=== PATIENT | male | born 1960 | race Caucasian/White ===

== ENCOUNTER 2020-05-14 20:08 | Emergency (ER) | payer BC, SELFPAY ==
[2020-05-14 20:09] VITALS: BP 164/111; PULSE 70; RESP 16; TEMP 36.1; O2SAT 95
[2020-05-14 20:51] VITALS: BP 135/89; PULSE 52; RESP 18
--- NOTE | 2020-05-14 20:52 | ED.GENADULT ---
HPI - General Adult General Chief complaint: Extremity Injury, Upper Stated complaint: Fall, Arm Lac Time Seen by Provider: 05/14/20 20:11 Source: patient and family Mode of arrival: ambulatory Limitations: no limitations History of Present Illness HPI narrative: Patient is a 59-year-old male who presents with right elbow injury patient notes that he slipped on his wet deck landing on his right elbow sustaining laceration of the proximal right forearm patient notes his tetanus to be up-to-date patient presents to emergency department noting minimal pain patient denies any decreased range of motion or strength or other issues Related Data Home Medications Medication Instructions Recorded Confirmed sildenafil 100 mg tablet 100 mg PO DAILY PRN 02/23/19 02/28/20 omeprazole 40 mg-sodium 1 cap PO DAILY 03/09/19 02/28/20 bicarbonate 1.1 gram capsule Allergies Allergy/AdvReac Type Severity Reaction Status Date / Time No Known Allergies Allergy Verified 05/14/20 20:52 Review of Systems Review of Systems: All systems reviewed & are unremarkable except as noted in HPI and below PMFSH Past Medical History Medical History Alcohol use disorder Anxiety Atrial fibrillation Closed left ankle fracture COVID-19 virus infection Failed hardware Left ankle hardware removed GERD without esophagitis Gout Hyperlipidemia Hypertension Uncontrolled Obstructive sleep apnea Intolerant of CPAP Surgical History Surgical History History of appendectomy Family History Family History Mother Diabetes mellitus Family history of diabetes mellitus in first degree relative Hypertension Cerebrovascular accident Sibling Diabetes mellitus Social History Social History Social History: 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 he is a full code Smoking packs per day: 1 Smoking cigarettes per day: 20.0 Smoking status: Never smoker Tobacco type: cigarettes Second hand tobacco smoke exposure: No Alcohol intake: current Drinks per week: 8 Substance use: current Substance use type: does not use Other substance usage details: DENIES. POSITIVE FOR MARIJUANA IN DRUG SCREEN. Additional living arrangements comments: Ara. Additional occupation/education comments: We can Gender identity (if verbalized by the patient): Male Spiritual care concerns: No Agree to blood products: Yes Exam Narrative: Exam Narrative: GENERAL: Well-appearing, well-nourished, and in no acute distress. HEAD: Normocephalic, atraumatic. EYES: PERRLA and EOMI. ENT: Nares clear, no rhinorrhea or epistaxis. Mucous membranes moist. EXTREMITIES: Normal range of motion. No edema. SKIN: Warm, dry, no rash. 3 cm irregular laceration extending to the subcutaneous tissues of the proximal right forearm NEURO: No focal deficits. Alert and oriented x3. Neurovascularly intact. Capillary refill less than 2-second PSYCH: Normal mood and affect. Course Course Emergency Course: Patient in the room aware of case findings treatment plan diagnosis had repair of his wound will be discharged home for further evaluation by primary care given reasons to return and felt appropriate for outpatient reevaluation Vital Signs Vital signs: Vital Signs Temperature 97 F L 05/14/20 20:09 Pulse Rate 70 05/14/20 20:09 Respiratory Rate 16 05/14/20 20:09 Blood Pressure 164/111 H 05/14/20 20:09 Pulse Oximetry 95 05/14/20 20:09 Temperature 97 F L 05/14/20 20:09 Pulse Rate 70 05/14/20 20:09 Respiratory Rate 16 05/14/20 20:09 Blood Pressure 164/111 H 05/14/20 20:09 Pulse Oximetry 95 05/14/20 20:09 Procedures Laceration Laceration 1: Date: 05/14/20 Time: 20:55
[2020-05-14 20:55] VITALS: BP 135/89; PULSE 52; RESP 18; O2SAT 95
== END 2020-05-14 20:55 | disposition home or self-care (01) ==
PROVIDERS: Emergency Provider Emergency Medicine; PCP Physician Assistant Medical
DX: S51.811A Laceration without foreign body of right forearm, initial encounter (principal); W01.0XXA Fall on same level from slipping, tripping and stumbling without subsequent striking against object, initial encounter; F41.9 Anxiety disorder, unspecified; I48.91 Unspecified atrial fibrillation; Z86.16 Personal history of COVID-19; K21.9 Gastro-esophageal reflux disease without esophagitis; M10.9 Gout, unspecified; E78.5 Hyperlipidemia, unspecified; I10 Essential (primary) hypertension; G47.33 Obstructive sleep apnea (adult) (pediatric)
CPT/HCPCS: 12002; 99282

== ENCOUNTER 2020-05-24 19:45 | Emergency (ER) | payer BC, SELFPAY ==
[2020-05-24 19:51] VITALS: BP 159/90; PULSE 78; RESP 18; TEMP 35.8; O2SAT 93
--- NOTE | 2020-05-24 20:05 | PC.NURSE ---
patient brought back to ED room 21 for wound check. patient had odell placed at this ED approximately 10 days ago. was instructed to remove at 7-10 days. patient removed 2 odell today and states that area began to bleed. see initial notes. alert. oriented. denies needs. waiting for provider to see patient.
--- NOTE | 2020-05-24 20:50 | ED.SKABFB ---
HPI - Skin/Abscess/Foreign Bdy General Chief complaint: Skin/Abscess/Foreign Body Stated complaint: closed wound opened Time Seen by Provider: 05/24/20 19:58 Source: patient Mode of arrival: ambulatory Limitations: intoxication History of Present Illness HPI narrative: This is a 59-year-old male that presents the emergency department for concern about his laceration. Reports he had brianne and sutures placed about 10 days ago. He started to take the brianne out today and there was a little bit of bleeding which concerned him. Denies fever, abnormal drainage, or redness. Related Data Allergies Allergy/AdvReac Type Severity Reaction Status Date / Time No Known Allergies Allergy Verified 05/14/20 20:52 Review of Systems Review of Systems: Narrative: CONSTITUTIONAL: Denies fever SKIN: Reports laceration All systems reviewed & are unremarkable except as noted in HPI and below PMFSH Past Medical History Medical History Alcohol use disorder Anxiety Atrial fibrillation Closed left ankle fracture COVID-19 virus infection Failed hardware Left ankle hardware removed GERD without esophagitis Gout Hyperlipidemia Hypertension Uncontrolled Obstructive sleep apnea Intolerant of CPAP Surgical History Surgical History History of appendectomy Family History Family History Mother Diabetes mellitus Family history of diabetes mellitus in first degree relative Hypertension Cerebrovascular accident Sibling Diabetes mellitus Social History Social History Social History: 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 he is a full code Smoking packs per day: 1 Smoking cigarettes per day: 20.0 Smoking status: Never smoker Tobacco type: cigarettes Second hand tobacco smoke exposure: No Alcohol intake: current Drinks per week: 8 Substance use: current Substance use type: does not use Other substance usage details: DENIES. POSITIVE FOR MARIJUANA IN DRUG SCREEN. Additional living arrangements comments: [facility]. Additional occupation/education comments: We can Gender identity (if verbalized by the patient): Male Spiritual care concerns: No Agree to blood products: Yes Exam Narrative: Exam Narrative: GENERAL: Well-appearing, well-nourished, and in no acute distress. HEAD: Normocephalic, atraumatic. EYES: EOMI. EXTREMITIES: Normal range of motion. No edema or erythema. Laceration to the right elbow appears to be well-healing. No erythema or edema. No abnormal drainage. There are [address] left in place SKIN: Warm, dry, no rash. NEURO: No focal deficits. Alert and oriented x3. PSYCH: Normal mood and affect Course Vital Signs Vital signs: Vital Signs Temperature 96.5 F L 05/24/20 19:51 Pulse Rate 78 05/24/20 19:51 Respiratory Rate 18 05/24/20 19:51 Blood Pressure 159/90 H 05/24/20 19:51 Pulse Oximetry 93 05/24/20 19:51 Temperature 96.5 F L 05/24/20 19:51 Pulse Rate 78 05/24/20 19:51 Respiratory Rate 18 05/24/20 19:51 Blood Pressure 159/90 H 05/24/20 19:51 Pulse Oximetry 93 05/24/20 19:51 Procedures Foreign Body Removal Foreign Body #1: Foreign Body Removal Date: 05/24/20 Site: right Description of foreign body: other (Brianne) Technique: other (Removal of staple remover) Confirmed by:: direct visualization Complications: none Neurovascular: no change from pre-procedure Foreign Body Removal Narrative: Krypton removed from laceration to the right elbow MDM - Skin/Abscess/Foreign Bdy MDM Narrative Medical decision making narrative: Patient presents to the emergency department for staple removal. He had removed some of them himself. He was reporting
== END 2020-05-24 20:59 | disposition home or self-care (01) ==
PROVIDERS: Emergency Provider Emergency Medicine; PCP Physician Assistant Medical
DX: S51.011D Laceration without foreign body of right elbow, subsequent encounter (principal); Z86.16 Personal history of COVID-19; K21.9 Gastro-esophageal reflux disease without esophagitis; M10.9 Gout, unspecified; E78.5 Hyperlipidemia, unspecified; I10 Essential (primary) hypertension; G47.33 Obstructive sleep apnea (adult) (pediatric); X58.XXXD Exposure to other specified factors, subsequent encounter; F17.210 Nicotine dependence, cigarettes, uncomplicated
CPT/HCPCS: 99281

== ENCOUNTER 2020-08-11 08:46 | Outpatient (CLI) | payer BC, SELFPAY ==
--- NOTE | ~2020-08-11 | US_ITS ---
EXAMINATION: US abdomen complete DATE: 08/11/2020 09:14 INDICATION: Other specified abnormal findings of blood chemistry. TECHNIQUE: Multiple grayscale and Doppler ultrasound images of the abdomen were obtained. COMPARISON: CT abdomen and pelvis 10/19/2011, 11/29/2009 FINDINGS: The visualized portions of the head and body of the pancreas are normal. The inferior vena cava is normal. The visualized portions of abdominal aorta are normal in caliber. There is a 3.1 cm h yperechoic mass in the liver correlating with a hemangioma on the prior CT. There is a 9 mm hyperecho ic mass in the gallbladder fossa, likely focal steatosis. No liver surface nodularity. There is fern l flow in main portal vein. The gallbladder is normal in size. No gallstones. Gallbladder wall thicke sofia is noted. There was no sonographic Guzman sign. The common duct is normal and measures 5 mm. The kidneys are normal size. There is a 1.8 cm cyst in right kidney. There is mild splenomegaly measurin g 14.3 cm. IMPRESSION: 1. Chronic mild splenomegaly, likely secondary to obesity. 2. Gallbladder wall thickening, which may be seen with chronic liver disease, interstitial edema, or chronic cholecystitis. Reviewed, dictated and finalized at location A. IMPRESSION: 1. Chronic mild splenomegaly, likely secondary to obesity. 2. Gallbladder wall thickening, which may be seen with chronic liver disease, i nterstitial edema, or chronic cholecystitis.
== END 2020-08-11 08:47 ==
PROVIDERS: PCP Family Medicine; Visit Provider Physician Assistant Medical
DX: R79.89 Other specified abnormal findings of blood chemistry (principal); R16.1 Splenomegaly, not elsewhere classified; E66.9 Obesity, unspecified; K82.8 Other specified diseases of gallbladder
CPT/HCPCS: 76700

== ENCOUNTER 2020-09-05 13:38 | Outpatient (CLI) | payer BC, SELFPAY ==
--- NOTE | 2020-09-05 13:59 | ECHO_ITS ---
Patient Info Name: Jordan Frias Age: 59 years : 1960 Gender: Male Ht: 77 in Wt: 270 lbs BSA: 2.61 m2 HR: 87 bpm BP: 145 / 100 mmHg Technical Quality: Good Exam Date: 09/05/2020 2:09 PM Exam Location: [facility] Patient Status: Outpatient Admit Date: 09/05/2020 Staff Ordering Physician: Dilan Hu DO Cut Off Machine Unloader: Bri Vieira RDCS Attending Provider: Dilan Hu DO Referring Physician: Fritz DYE; Exam Type: CA echo doppler color flow Study Info Indications - afib Complete two-dimensional, color flow and Doppler transthoracic echocardiogram is performed. Summary 1. Complete two-dimensional, color flow and Doppler transthoracic echocardiogram is performed. 2. Left ventricular chamber dimension is mildly enlarged. 3. Left ventricular systolic function is normal, estimated at 55-60%. 4. There is mildly increased left ventricular wall thickness. 5. The left ventricular diastolic function is normal. 6. E/e' 5 is not elevated. 7. Atrial fibrillation. 8. Left atrial chamber dimension is severely enlarged. 9. Right atrial chamber dimension is severely enlarged. 10. There is mild mitral valve regurgitation. 11. There is moderate tricuspid valve regurgitation. 12. No pulmonary hypertension, estimated pulmonary arterial systolic pressure is 36 mmHg. 13. There is trace pulmonic regurgitation. Left Ventricle E/e' 5 is not elevated. Atrial fibrillation. Left ventricular chamber dimension is mildly enlarged. Left ventricular systolic function is normal, estimated at 55-60%. There is mildly increased left ventricular wall thickness. The left ventricular diastolic function is normal. Right Ventricle Right ventricular systolic function is normal with normal TAPSE 2.2 cm. Right ventricular chamber dimension is normal. Left Atria Left atrial chamber dimension is severely enlarged. Right Atria Right atrial chamber dimension is severely enlarged. Aortic Valve The aortic valve is trileaflet. There is no aortic valve stenosis. There is no aortic valve regurgitation. Pulmonic Valve There is trace pulmonic regurgitation. Mitral Valve There is no mitral valve stenosis. There is mild mitral valve regurgitation. Tricuspid Valve There is moderate tricuspid valve regurgitation. No pulmonary hypertension, estimated pulmonary arterial systolic pressure is 36 mmHg. Pericardium/Pleural There is no pericardial effusion. Inferior Vena Cava Normal inferior vena cava with >50% collapse upon inspiration consistent with normal right atrial pressure, 5 mmHg. Aorta The aortic root size at the sinus of Valsalva is normal. Left Ventricular Outflow Tract Name Value Normal LVOT 2D LVOT Diameter 2.2 cm LVOT Doppler LVOT Peak Gradient 3 mmHg LVOT Mean Gradient 2 mmHg LVOT VTI 19 cm LVOT VTI/AV VTI Ratio 0.8 LVOT Stroke Volume 71 ml LVOT CO 14.3 l/min LVOT CI
== END 2020-09-05 13:39 | disposition home or self-care (01) ==
LOC: ANHCARD 13:41
PROVIDERS: PCP Family Medicine; Visit Provider Internal Medicine Cardiovascular Disease
DX: I48.91 Unspecified atrial fibrillation (principal); I34.0 Nonrheumatic mitral (valve) insufficiency; I36.1 Nonrheumatic tricuspid (valve) insufficiency
CPT/HCPCS: 93306